=== PATIENT | male | born 1965 | race Caucasian/White ===

== ENCOUNTER → 2020-01-04 14:02 | Outpatient (BNVA) | payer MEDICARE, MEDICAID, SELFPAY | PROVIDERS: Family Provider Nurse Practitioner Family; PCP Nurse Practitioner Family; Visit Provider Nurse Practitioner | DX: R05 Cough (principal) | CPT/HCPCS: 71046 ==

== ENCOUNTER → 2020-03-05 13:51 | Outpatient (BNVA) | payer MEDICARE, MEDICAID, SELFPAY | PROVIDERS: Family Provider Nurse Practitioner Family; PCP Nurse Practitioner Family; Visit Provider Nurse Practitioner Family | DX: Z11.59 Encounter for screening for other viral diseases (principal) | CPT/HCPCS: 87635 ==

== ENCOUNTER → 2022-03-03 08:51 | Outpatient (BNVA) | payer MEDICARE, MEDICAID, SELFPAY | PROVIDERS: Family Provider Nurse Practitioner Family; PCP Nurse Practitioner Family; Visit Provider Nurse Practitioner Family | DX: J02.0 Streptococcal pharyngitis (principal) | CPT/HCPCS: 87880 ==

== ENCOUNTER 2025-04-06 14:43 | Inpatient (IN) | payer MEDICARE, MEDICAID, SELFPAY ==
[2025-04-06] VITALS (11 sets, daily range): BP systolic 121–140; BP diastolic 68–92; PULSE 67–105; RESP 16–18; TEMP 37.4–37.9; O2SAT 96–99; BMI 29.8
--- NOTE | 2025-04-06 15:30 | XR_ITS ---
WS: [id number] Exam: XR forearm RT 2V [id number] Date/Time of Exam: 04/06/2025 4:03 PM Reason For Exam: abscess Oblique and lateral views of the RIGHT forearm are submitted. No obvious fracture or dislocation. There may be some's edema of the volar soft tissues of the forearm. No sign of bone destruction. XR/XR forearm RT 2V [id number] IMPRESSION: 1. Probable soft tissue edema. No bony injury. No radiopaque soft tissue foreig n body.
--- NOTE | 2025-04-06 15:30 | USR_ITS ---
PROCEDURE INFORMATION: Exam: US Right Limited Joint or Other Non-Vascular Extremity Structure Exam date and time: 04/06/2025 4:33 PM Age: 59 years old Clinical indication: Mass or lump; Arm, lower; Right; Additional info: Right forearm abscess TECHNIQUE: Imaging protocol: US right limited joint or other nonvascular extremity structure. Real-time ultrasound with image documentation. Exam focused on the area of clinical interest. Total images: 335 COMPARISON: CR XR forearm RT 2V [id number] 04/06/2025 4:01 PM FINDINGS: Soft tissues: Right forearm subcutaneous soft tissue lobulated hypoechoic complex fluid collection with multiple loculations, the largest of which measure respectively 4.3 x 1.5 x 2.7 cm and 4.1 x 1.1 x 2.8 cm surrounded by generalized dermal and superficial subcutaneous edema favoring abscess, as queried. Other differential considerations may include posttraumatic resolving hematoma-seroma or other indolent cystic structures. No well-circumscribed thick wall appreciated. Generalized upper extremity superficial subcutaneous and dermal soft tissue edema supports the diagnosis of an infectious process. No echogenic foreign bodies. A superficial vascular structure courses through the fluid collection and demonstrates intraluminal echogenicity suggesting a thrombosed superficial vein. US/US soft tissue/extremity 70482 IMPRESSION: 1. Right forearm multiloculated subcutaneous fluid collection with lobulated contour, most consistent with abscess in the appropriate clinical context; post-traumatic seroma or indolent cystic lesion less likely. Percutaneous fluid sampling may be useful to establish a definitive mycobacterial or/and histologic diagnosis this regard. Consider referral to general surgery for incision and drainage. 2. Right upper extremity forearm suspected thrombosed superficial vein coursing through the aforementioned fluid collection.
--- NOTE | 2025-04-06 15:40 | W.ED.SKABFB ---
Documented by User: ADOLFO Singleton 04/06/25 21:26 HPI - Skin/Abscess/Foreign Bdy General: Chief complaint: Skin/Abscess/Foreign Body Stated complaint: R Forarm Hard to touch swollen blisters Time Seen by Provider: 04/06/25 14:53 History of Present Illness: Patient is 59-year-old male presents to the emergency room with increasing redness to an area on 2 places on his right arm. Patient believes that he was bit by a spider a few days ago. He is unsure when. It has worsened with redness, swelling, and draining has not occurred. After I left the room, and his family left the room, he finally digressed and admitted he had IVDU to RN. This was secondary to a missed IVDU for methamphetamines. He states it has worsened over the course the last 1 week. Associated symptoms: Deny chills, fever(s), nausea or vomiting Related Data Home Medications ?Medication ?Instructions ?Recorded ?Confirmed No Known Home Medications 04/06/25 04/06/25 Allergies Allergy/AdvReac Type Severity Reaction Status Date / Time No Known Allergies Allergy Unverified 03/03/22 08:54 Review of Systems General: Reports: 10 or more systems reviewed and unremarkable except in HPI and below Const: Denies: fever(s), chills, body aches or change in appetite Eyes: Denies: change in vision, eye discharge or eye redness ENMT: Reports: throat pain; Denies: hoarseness, ear or mastoid pain, ear discharge, nasal discharge or nasal congestion Card: Denies: chest pain, palpitations, irregular heart rhythm or edema Resp: Denies: dyspnea, productive cough, non-productive cough or wheezing GI: Denies: abdominal pain, nausea, vomiting, diarrhea, constipation or hematochezia : Denies: dysuria, urinary frequency, urinary urgency, urinary hesitancy or hematuria Musc: Denies: joint swelling, joint redness, joint warmth or joint stiffness Skin/Breast: Reports: rash, pruritus, skin tenderness, skin swelling and new lesions Neuro: Reports: weakness in extremities (upper); Denies: headache(s), numbness in extremities or lack of coordination Psych: Denies: suicidal ideation or homicidal ideation Iftikhar/Lymph: Denies: enlarged lymph nodes or tender lymph nodes PFSH ED PFSH: Medical History (Updated 04/06/25 @ 21:21 by ADOLFO Singleton) DDD (degenerative disc disease), lumbar Obesity Tobacco abuse Essential (primary) hypertension Surgical History History of carpal tunnel surgery both Family History Other CAD (coronary artery disease) Cancer Hyperlipidemia Social History Smoking and tobacco/nicotine status: current every day tobacco/nicotine user Second hand smoke exposure: Yes Alcohol intake: never Substance/Drug Use: never Adopted: No Caregiver/support person: No Lives independently: Yes Household members: none Housing: House Marital status: service: No Current occupational status: unemployed Pets and animals: Yes Do you think of yourself as: Straight/Heterosexual Current gender identity: Male Physical Exam Const: COMMON NORMALS: no acute distress, average body habitus and patient oriented x3 HENMT: COMMON NORMALS: normocephalic and atraumatic HEAD & SCALP: normocephalic and atraumatic Lymph: LYMPHATIC: no lymphadenopathy noted Chest: COMMONS NORMALS: normal inspection of the chest and normal palpation of entire chest wall Resp: COMMON NORMALS: normal respiratory effort, No retractions and clear to auscultation bilaterally AUSCULTATION: clear to auscultation bilaterally Cardio: COMMON NORMALS: regular rate and regular rhythm RATE: regular rate RHYTHM: regular rhythm GI: COMMON NORMALS: Normal to inspection, nondistended, normoactive bowel sounds present, Soft to palpation, non-tender and No hepatosplenomegaly present PALPATION: Yes Soft to palpation and Yes No hepatosplenomegaly present : COMMON NORMALS: Yes no CVA tenderness BLADDER/KIDNEY EXAM: Yes no CVA tenderness Back/Pelvis: COMMON NORMALS: no CVA tenderness Extremity: RIGHT UPPER EXTREMITY: Yes upper arm Right upper arm: Yes inspection (Red raised abscesses to mid and distal forearm), Yes palpation (induration without motion) and Yes neurovascular exam (intact, pulses +2), Yes lower arm (Lower arm as described above) and Yes hand & digits (No change in hand and digits) EXTREMITY IMAGE (FRONT):  1. Red, raised abscesses Neuro: COMMON NORMALS: patient oriented x3 Psych: COMMON NORMALS: mental status grossly normal, Normal thought process present and cooperative THOUGHT PROCESS: Normal thought process present Skin: NARRATIVE SKIN EXAM: Patient has a right lateral multiple area of tenderness with mid and distal upper extremity. There is redness, streaking, induration, however it is minimally mobile. At times there is minimal discharge from this area. Course Consultations: Consultation #1: Dr. Hernandez recommended inpatient on medical/surgical floor. Vital Signs: Vital signs: Vital Signs Temperature 100.2 F H 04/06/25 21:44 Pulse Rate 87 04/06/25 21:44 Respiratory Rate 16 04/06/25 21:44 Blood Pressure 136/87 04/06/25 21:44 Pulse Oximetry 96 04/06/25 21:44 Oxygen Delivery Me thod Room Air 04/06/25 21:44 MDM - Skin/Abscess/Foreign Bdy Medicial Decision Making Patient is 59-year-old gentleman with 40 years of IVDU, who presents to the emergency room with 2 masses to his right forearm. On ultrasound, there were septated abscesses. Blood cultures have been drawn. Vancomycin, cefepime and have been started. IV fluid bolus given x 1 L. Magnesium that was severely low at 0.9 has been treated with 4 g, however patient will need additional magnesium. Calcium has been treated with 1 g of calcium carbonate, and 1 g IV of calcium gluconate. Potassium has been given 1 dose of 40 mill equivalents. All of these were discussed with the hospitalist, that understand she will need to continue correcting these issues. All of patient's questions were answered to his satisfaction. He did not have high WBC, however did have neutrophilia, and a red arm consistent with cellulitis. I did not feel comfortable discharging this patient with both his electrolytes, and his septated abscesses. Discussed with hospitalist, that recommends placing the patient on medical surgical floor. Medical Records I reviewed the patient's medical records. Lab Data I reviewed the patient's lab results. 04/06/25 17:11 04/06/25 17:11 Radiology Impressions Forearm X-Ray 04/06/25 15:30 IMPRESSION: 1. Probable soft tissue edema. No bony injury. No radiopaque soft tissue foreign body. Soft Tissue Ultrasound 04/06/25 15:30 IMPRESSION: 1. Right forearm multiloculated subcutaneous fluid collection with lobulated contour, most consistent with abscess in the appropriate clinical context; post-traumatic seroma or indolent cystic lesion less likely. Percutaneous fluid sampling may be useful to establish a definitive mycobacterial or/and histologic diagnosis this regard. Consider referral to general surgery for incision and drainage. 2. Right upper extremity forearm suspected thrombosed superficial vein coursing through the aforementioned fluid collection. Laboratory Results WBC 10.48 10^3/uL (3.29-11.43) 04/06/25 17:11 Corrected WBC Cancelled 04/06/25 15:59 RBC 3.18 10^6/uL (3.85-5.65) L 04/06/25 17:11 Hgb 9.30 g/dL (11.27-16.99) L 04/06/25 17:11 Hct 27.5 % (37-53) L 04/06/25 17:11 MCV 86.5 fl (82-101) 04/06/25 17:11 MCH 29.2 pg (27-33) 04/06/25 17:11 MCHC 33.8 g/dL (30-55) 04/06/25 17:11 RDW 13.2 % (12.1-15.1) 04/06/25 17:11 Plt Count 220 10^3/cmm (157-399) 04/06/25 17:11 MPV 9.0 fL (7.4-10.4) 04/06/25 17:11 Gran % Cancelled 04/06/25 15:59 Neut % (Auto) 81.5 % 04/06/25 17:11 Lymph % (Auto) 11.7 % 04/06/25 17:11 [place] % (Auto) 5.4 % 04/06/25 17:11 Eos % (Auto) 0.5 % 04/06/25 17:11 Baso % (Auto) 0.4 % 04/06/25 17:11 Neut # (Auto) 8.54 10^3/uL (1.8-7.7) H 04/06/25 17:11 Lymph # (Auto) 1.2 10^3/uL (0.8-4.8) 04/06/25 17:11 [place] # (Auto) 0.6 10^3/uL (0.2-0.9) 04/06/25 17:11 Eos # (Auto) 0.1 10^3/uL (0.0-0.8) 04/06/25 17:11 Baso # (Auto) 0.0 10^3/uL (0.0-0.1) 04/06/25 17:11 Absolute Gran (auto) Cancelled 04/06/25 15:59 Nucleated RBC % (auto) 0 % 04/06/25 17:11 Nucleated RBCs # 0.0 /100WBC 04/06/25 17:11 Sodium 140 mmol/L (136-145) 04/06/25 17:11 Potassium 2.0 mmol/L (3.5-5.1) L* 04/06/25 17:11 Chloride 117 mmol/L (98-107) H 04/06/25 17:11 Carbon Dioxide 15 mmol/L (22-29) L 04/06/25 17:11 Anion Gap 10.0 (5-19) 04/06/25 17:11 BUN 8 mg/dL (6-20) 04/06/25 17:11 Creatinine 0.4 mg/dL (0.7-1.2) L 04/06/25 17:11 GFR Calculation 220.9 mL/min (90-130) H 04/06/25 17:11 Glucose 72 mg/dL (65-115) 04/06/25 17:11 Calculated Osmolality 287 mOsm/kg (285-295) 04/06/25 17:11 Lactic Acid 0.8 mmol/L (0.5-2.2) 04/06/25 17:11 Calcium 4.5 mg/dL (8.5-10.5) L* 04/06/25 17:11 Magnesium 0.9 mg/dL (1.7-2.3) L 04/06/25 17:11 Total Bilirubin 0.6 mg/dL (0.15-1.2) 04/06/25 17:11 AST 8 U/L (0-40) 04/06/25 17:11 ALT 10 U/L (0-41) 04/06/25 17:11 Alkaline Phosphatase 55 U/L (40-130) 04/06/25 17:11 C-Reactive Protein 55.2 mg/L (0.0-4.9) H 04/06/25 17:11 Total Protein 3.6 g/dL (6.6-8.7) L 04/06/25 17:11 Albumin 1.8 g/dL (3.5-5.2) L 04/06/25 17:11 Globulin 1.8 g/dL (1.3-4.6) 04/06/25 17:11 Urine Color [place] (Yellow) A 04/06/25 18:55 Urine Appearance Clear (CLEAR) 04/06/25 18:55 Urine pH 5.5 (5-7) 04/06/25 18:55 Ur Specific [place] 1.020 (1.005-1.030) 04/06/25 18:55 Urine Protein Trace (Negative) A 04/06/25 18:55 Urine Glucose (UA) Negative (Normal) 04/06/25 18:55 Urine Ketones Trace (Negative) 04/06/25 18:55 Urine Blood Negative (Negative) 04/06/25 18:55 Urine Nitrate Positive (Negative) A 04/06/25 18:55 Urine Bilirubin 1+ (Negative) H 04/06/25 18:55 Urine Urobilinogen 2.0 mg/dL (Negative) H 04/06/25 18:55 Ur Leukocyte Esterase Negative (Negative) 04/06/25 18:55 Urine RBC 0-2 /hpf (0-2) 04/06/25 18:55 Urine WBC 0-5 /hpf (0-5) 04/06/25 18:55 Ur Squamous Epith Cells 0-5 /hpf (0-5) 04/06/25 18:55 Amorphous Sediment Not Reportable 04/06/25 18:55 Urine Bacteria None seen /hpf (NONE) 04/06/25 18:55 Hyaline Casts 1.21 /lpf 04/06/25 18:55 Urine Opiates Screen Negative ng/mL (Negative) 04/06/25 18:55 Ur Barbiturates Screen Negative ng/mL (Negative) 04/06/25 18:55 Ur Phencyclidine Scrn Negative ng/mL (Negative) 04/06/25 18:55 Ur Amphetamines Screen Positive ng/mL (Negative) H 04/06/25 18:55 U Benzodiazepines Scrn Negative ng/mL (Negative) 04/06/25 18:55 Urine Cocaine Screen Negative ng/mL (Negative) 04/06/25 18:55 U Marijuana (THC) Screen Negative ng/mL (Negative) 04/06/25 18:55 All radiology interpretation(s) finalized by discharge EKG Data EKG 1: Interpretation: Normal sinus rhythm, normal axis, rate 88 Discharge Plan Discharge Patient Disposition: Admitted As Inpatient Admit Provider: Chrissy Oseguera Clinical Impression: Hypomagnesemia, Hypokalemia, Hypocalcemia Abscess of skin or subcutaneous tissue Qualifiers: Site of cutaneous abscess: extremity Site of cutaneous abscess of extremity: upper extremity Laterality: right Qualified Code(s): L02.413 - Cutaneous abscess of right upper limb Cellulitis Qualifiers: Site of cellulitis: extremity Site of cellulitis of extremity: upper extremity Laterality: right Qualified Code(s): L03.113 - Cellulitis of right upper limb Condition: Stable Discharge Diet: Low Salt Discharge Activity: Resume usual activity Coding Level of Care Code ED Shirring Machine Operator Automatic for Chg Fwd Documented by User: Arsenio Malone MD 04/06/25 23:39 HPI - Skin/Abscess/Foreign Bdy General: Chief complaint: Skin/Abscess/Foreign Body Stated complaint: R Forarm Hard to touch swollen blisters Time Seen by Provider: 04/06/25 14:53 Related Data Home Medications ?Medication ?Instructions ?Recorded ?Confirmed No Known Home Medications 04/06/25 04/06/25 Allergies Allergy/AdvReac Type Severity Reaction Status Date / Time No Known Allergies Allergy Unverified 03/03/22 08:54 PFS ED PFSH: Medical History (Updated 04/06/25 @ 21:21 by ADOLFO Singleton) DDD (degenerative disc disease), lumbar Obesity Tobacco abuse Essential (primary) hypertension Surgical History History of carpal tunnel surgery both Family History Other CAD (coronary artery disease) Cancer Hyperlipidemia Social History Smoking and tobacco/nicotine status: current every day tobacco/nicotine user Second hand smoke exposure: Yes Alcohol intake: never Substance/Drug Use: never Adopted: No Caregiver/support person: No Lives independently: Yes Household members: none Housing: House Marital status: service: No Current occupational status: unemployed Pets and animals: Yes Do you think of yourself as: Straight/Heterosexual Current gender identity: Male Physical Exam Extremity: EXTREMITY IMAGE (FRONT):  1. Red, raised abscesses Course Vital Signs: Vital signs: Vital Signs Temperature 100.2 F H 04/06/25 21:44 Pulse Rate 87 04/06/25 21:44 Respiratory Rate 16 04/06/25 21:44 Blood Pressure 136/87 04/06/25 21:44 Pulse Oximetry 96 04/06/25 21:44 Oxygen Delivery Me thod Room Air 04/06/25 21:44 MDM - Skin/Abscess/Foreign Bdy Medicial Decision Making Patient is 59-year-old gentleman with 40 years of IVDU, who presents to the emergency room with 2 masses to his right forearm. On ultrasound, there were septated abscesses. Blood cultures have been drawn. Vancomycin, cefepime and have been started. IV fluid bolus given x 1 L. Magnesium that was severely low at 0.9 has been treated with 4 g, however patient will need additional magnesium. Calcium has been treated with 1 g of calcium carbonate, and 1 g IV of calcium gluconate. Potassium has been given 1 dose of 40 mill equivalents. All of these were discussed with the hospitalist, that understand she will need to continue correcting these issues. All of patient's questions were answered to his satisfaction. He did not have high WBC, however did have neutrophilia, and a red arm consistent with cellulitis. I did not feel comfortable discharging this patient with both his electrolytes, and his septated abscesses. Discussed with hospitalist, that recommends placing the patient on medical surgical floor. I saw patient above midlevel agree with her history physical patient being admitted for hypokalemia along with hypomagnesia did replace here. Lab Data 04/06/25 17:11 04/06/25 17:11 Radiology Impressions Forearm X-Ray 04/06/25 15:30 IMPRESSION: 1. Probable soft tissue edema. No bony injury. No radiopaque soft tissue foreign body. Soft Tissue Ultrasound 04/06/25 15:30 IMPRESSION: 1. Right forearm multiloculated subcutaneous fluid collection with lobulated contour, most consistent with abscess in the appropriate clinical context; post-traumatic seroma or indolent cystic lesion less likely. Percutaneous fluid sampling may be useful to establish a definitive mycobacterial or/and histologic diagnosis this regard. Consider referral to general surgery for incision and drainage. 2. Right upper extremity forearm suspected thrombosed superficial vein coursing through the aforementioned fluid collection. Laboratory Results WBC 10.48 10^3/uL (3.29-11.43) 04/06/25 17:11 Corrected WBC Cancelled 04/06/25 15:59 RBC 3.18 10^6/uL (3.85-5.65) L 04/06/25 17:11 Hgb 9.30 g/dL (11.27-16.99) L 04/06/25 17:11 Hct 27.5 % (37-53) L 04/06/25 17:11 MCV 86.5 fl (82-101) 04/06/25 17:11 MCH 29.2 pg (27-33) 04/06/25 17:11 MCHC 33.8 g/dL (30-55) 04/06/25 17:11 RDW 13.2 % (12.1-15.1) 04/06/25 17:11 Plt Count 220 10^3/cmm (157-399) 04/06/25 17:11 MPV 9.0 fL (7.4-10.4) 04/06/25 17:11 Gran % Cancelled 04/06/25 15:59 Neut % (Auto) 81.5 % 04/06/25 17:11 Lymph % (Auto) 11.7 % 04/06/25 17:11 [place] % (Auto) 5.4 % 04/06/25 17:11 Eos % (Auto) 0.5 % 04/06/25 17:11 Baso % (Auto) 0.4 % 04/06/25 17:11 Neut # (Auto) 8.54 10^3/uL (1.8-7.7) H 04/06/25 17:11 Lymph # (Auto) 1.2 10^3/uL (0.8-4.8) 04/06/25 17:11 [place] # (Auto) 0.6 10^3/uL (0.2-0.9) 04/06/25 17:11 Eos # (Auto) 0.1 10^3/uL (0.0-0.8) 04/06/25 17:11 Baso # (Auto) 0.0 10^3/uL (0.0-0.1) 04/06/25 17:11 Absolute Gran (auto) Cancelled 04/06/25 15:59 Nucleated RBC % (auto) 0 % 04/06/25 17:11 Nucleated RBCs # 0.0 /100WBC 04/06/25 17:11 Sodium 140 mmol/L (136-145) 04/06/25 17:11 Potassium 2.0 mmol/L (3.5-5.1) L* 04/06/25 17:11 Chloride 117 mmol/L (98-107) H 04/06/25 17:11 Carbon Dioxide 15 mmol/L (22-29) L 04/06/25 17:11 Anion Gap 10.0 (5-19) 04/06/25 17:11 BUN 8 mg/dL (6-20) 04/06/25 17:11 Creatinine 0.4 mg/dL (0.7-1.2) L 04/06/25 17:11 GFR Calculation 220.9 mL/min (90-130) H 04/06/25 17:11 Glucose 72 mg/dL (65-115) 04/06/25 17:11 Calculated Osmolality 287 mOsm/kg (285-295) 04/06/25 17:11 Lactic Acid 0.8 mmol/L (0.5-2.2) 04/06/25 17:11 Calcium 4.5 mg/dL (8.5-10.5) L* 04/06/25 17:11 Magnesium 0.9 mg/dL (1.7-2.3) L 04/06/25 17:11 Total Bilirubin 0.6 mg/dL (0.15-1.2) 04/06/25 17:11 AST 8 U/L (0-40) 04/06/25 17:11 ALT 10 U/L (0-41) 04/06/25 17:11 Alkaline Phosphatase 55 U/L (40-130) 04/06/25 17:11 C-Reactive Protein 55.2 mg/L (0.0-4.9) H 04/06/25 17:11 Total Protein 3.6 g/dL (6.6-8.7) L 04/06/25 17:11 Albumin 1.8 g/dL (3.5-5.2) L 04/06/25 17:11 Globulin 1.8 g/dL (1.3-4.6) 04/06/25 17:11 Urine Color [place] (Yellow) A 04/06/25 18:55 Urine Appearance Clear (CLEAR) 04/06/25 18:55 Urine pH 5.5 (5-7) 04/06/25 18:55 Ur Specific [place] 1.020 (1.005-1.030) 04/06/25 18:55 Urine Protein Trace (Negative) A 04/06/25 18:55 Urine Glucose (UA) Negative (Normal) 04/06/25 18:55 Urine Ketones Trace (Negative) 04/06/25 18:55 Urine Blood Negative (Negative) 04/06/25 18:55 Urine Nitrate Positive (Negative) A 04/06/25 18:55 Urine Bilirubin 1+ (Negative) H 04/06/25 18:55 Urine Urobilinogen 2.0 mg/dL (Negative) H 04/06/25 18:55 Ur Leukocyte Esterase Negative (Negative) 04/06/25 18:55 Urine RBC 0-2 /hpf (0-2) 04/06/25 18:55 Urine WBC 0-5 /hpf (0-5) 04/06/25 18:55 Ur Squamous Epith Cells 0-5 /hpf (0-5) 04/06/25 18:55 Amorphous Sediment Not Reportable 04/06/25 18:55 Urine Bacteria None seen /hpf (NONE) 04/06/25 18:55 Hyaline Casts 1.21 /lpf 04/06/25 18:55 Urine Opiates Screen Negative ng/mL (Negative) 04/06/25 18:55 Ur Barbiturates Screen Negative ng/mL (Negative) 04/06/25 18:55 Ur Phencyclidine Scrn Negative ng/mL (Negative) 04/06/25 18:55 Ur Amphetamines Screen Positive ng/mL (Negative) H 04/06/25 18:55 U Benzodiazepines Scrn Negative ng/mL (Negative) 04/06/25 18:55 Urine Cocaine Screen Negative ng/mL (Negative) 04/06/25 18:55 U Marijuana (THC) Screen Negative ng/mL (Negative) 04/06/25 18:55 Discharge Plan Discharge Patient Disposition: Admitted As Inpatient Admit Provider: Chrissy Oseguera Clinical Impression: Hypomagnesemia, Hypokalemia, Hypocalcemia Abscess of skin or subcutaneous tissue Qualifiers: Site of cutaneous abscess: extremity Site of cutaneous abscess of extremity: upper extremity Laterality: right Qualified Code(s): L02.413 - Cutaneous abscess of right upper limb Cellulitis Qualifiers: Site of cellulitis: extremity Site of cellulitis of extremity: upper extremity Laterality: right Qualified Code(s): L03.113 - Cellulitis of right upper limb Condition: Stable Discharge Diet: Low Salt Discharge Activity: Resume usual activity Coding Level of Care Code ED Shirring Machine Operator Automatic for Fredrick Pugh
--- NOTE | 2025-04-06 16:17 | ECG_ITS ---
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
--- OUTSIDE RECORDS SUMMARY | 2025-04-06 16:27 | XMS_ITS | Clinical Summary ---
Author Organization [facility] Address [address] [place] [address] Care Team Providers Care Account Manager Education Name Role Phone Unavailable Primary Care Provider Unavailabl e Allergies No known active allergies Medications Aspirin, Buffered 81 mg Oral TabIndications:Th oracic or lumbosacral neuritis or radiculitis, unspecified,LBP (low back pain),Scoliosis Take by mouth. Active Active Problems Problem Noted Date Diagnosed Date DDD (degenerative disc disease), lumbar 11/13/19 11 Overview (11/12/2010): L3-4, 4-5, 5-1 Tobacco use disorder 11/12/2010 Morbid obesity 11/12/2010 Overview (11/12/2010): 330 lbs; BMI = 44.76 Scoliosis 10/22/2010 LBP (low back pain) 10/22/2010 Resolved Problems Problem Noted Date Diagnosed Date Resolved Date Thoracic or lumbosacral neur itis or radiculitis, unspecified 10/22/2010 11/12/2010 Overview (10/22/2010): RLE Social History Tobacco Use Types Packs/Day Years Used Date Smoking Tobacco: Every Day Smokeless Tobacco: Never Alcohol Use Standard Drinks/Week Comments No 0 (1 standard drink = 0.6 oz pur e alcohol) Sex and Gender Information Value Date Recorded Sex Assigned at Not on file 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 Gender Identity Not on file Sexual Orientation Not on file Last Filed Vital Signs Vital Sign Reading Time Taken Comments Blood Pressure 132/80 11/12/2010 9:05 AM CDT Pulse 90 11/12/2010 9:05 AM CDT Temperature - - Respiratory Rate 16 10/22/2010 8:07 AM CDT Oxygen Saturation - - Inhaled Oxygen Concentration - - Weight 149.7 kg (330 lb) 11/12/2010 9:05 AM CDT Height 182.9 cm (6') 11/12/2010 9:05 AM CDT Body Mass Index 44.76 11/12/2010 9:05 AM CDT Plan of Treatment Health Maintenance Due Date Last Done Comments DTAP/TDAP/TD VACCINES (1 - Tdap) 1985 HEPATITIS B VACCINES (1 of 3 - 19+ 3-dose series) 07/1984 COLORECTAL SCREENING 2011 Colorectal Cancer Screening 2011 FIT-DNA Q 3 years 2011 FIT/FOBT Q 1 year 2011 Flex Sig/CT Colonography Q 5 years 2011 ZOSTER VACCINE (1 of 2) 2016 INFLUENZA VACCINE (#1) 2025
--- OUTSIDE RECORDS SUMMARY | 2025-04-06 16:27 | XMS_ITS | Clinical Summary ---
Author Organization [employer] Address [address] [place]: Epic Prelude ADT [place] [address] Care Team Providers Care Production Dispatcher Name Role Phone Unavailable Primary Care Provider Unavailabl e Allergies No known active allergies Active Problems Problem Noted Date Diagnosed Date DDD (degenerative disc disease), lumbar 11/13/19 11 Overview (11/08/2020): L3-4, 4-5, 5-1 Tobacco use disorder 11/12/2010 Morbid obesity 11/12/2010 Overview (11/08/2020): 330 lbs; BMI = 44.76 Scoliosis 10/22/2010 LBP (low back pain) 10/22/2010 Resolved Problems Problem Noted Date Diagnosed Date Resolved Date Thoracic or lumbosacral neur itis or radiculitis, unspecified 10/22/2010 11/12/2010 Overview (11/07/2020): RLE Social History Tobacco Use Types Packs/Day Years Used Date Smoking Tobacco: Every Day Smokeless Tobacco: Never Alcohol Use Standard Drinks/Week Comments No 0 (1 standard drink = 0.6 oz pur e alcohol) Sex and Gender Information Value Date Recorded Sex Assigned at Not on file 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
[2025-04-06 17:20] LABS: Hematocrit 27.5 % (37-53); Hemoglobin 9.30 g/dL (11.27-16.99); Mean Corpuscular HGB Conc 33.8 g/dL (30-55); Mean Corpuscular Hemoglobin 29.2 pg (27-33); Mean Corpuscular Volume 86.5 fl (82-101); Nucleated Red Blood Cells % 0 %; Platelet Count 220 10^3/cmm (157-399); Red Blood Count 3.18 10^6/uL (3.85-5.65); White Blood Count 10.48 10^3/uL (3.29-11.43)
[2025-04-06 17:47] LABS: Alanine Aminotransferase 10 U/L (0-41); Albumin Level 1.8 g/dL (3.5-5.2); Alkaline Phosphatase 55 U/L (40-130); Anion Gap 10.0 (5-19); Aspartate Amino Transferase 8 U/L (0-40); Blood Urea Nitrogen 8 mg/dL (6-20); Carbon Dioxide 15 mmol/L (22-29); Chloride 117 mmol/L (98-107); Creatinine Clr Calc Pharmacy 251.3824; Globulin 1.8 g/dL (1.3-4.6); Glucose 72 mg/dL (65-115); Osmolality Calculated 287 mOsm/kg (285-295); Sodium 140 mmol/L (136-145); Total Protein 3.6 g/dL (6.6-8.7)
[2025-04-06 17:48] LABS: Lactic Sepsis W/Reflex 0.8 mmol/L (0.5-2.2)
[2025-04-06 18:19] LABS: Calcium 4.5 mg/dL (8.5-10.5); Potassium 2.0 mmol/L (3.5-5.1)
[2025-04-06 19:09] LABS: Magnesium 0.9 mg/dL (1.7-2.3)
[2025-04-06 19:20] LABS: Glucose Urine UA Negative (Normal); Nitrate Urine Positive (Negative); Specific Gravity, Urine 1.020 (1.005-1.030)
[2025-04-06 19:26] LABS: Add Urine Microscopic? YES; PCP Screen Urine Negative (Negative)
[2025-04-06] MEDS: magnesium sulfate premix 4 GM/100 ML PREMIX IV (19:33)
[2025-04-06] MEDS: cefepime 1,000 mg SDV 1000 MG IVP (20:04)
[2025-04-06] MEDS: calcium gluconate 0.1 gm/mL 10% SDV 10mL 1 GM IVP (20:04)
--- NOTE | 2025-04-06 22:09 | P.CONIM_ITS ---
Providers/Reason For Consult 2 Consulting Physician/Specialty*: Dr. Will general surgery Reason for Consult*: Right forearm I&D Attending Physician: Chrissy Oseguera MD Primary Care Provider: SHAWNEE Benjamin History of Present Illness History of Present Illness Jorge Levi is a 59 year old male history of IVDU with a right volar forearm abscess. Being treated with antibiotics. Medications/Allergies Home Medications ?Medication ?Instructions ?Recorded ?Confirmed ?Last Taken ?Type No Known Home Medications 04/06/2503/14 Unknown History Allergies Allergy/AdvReac Type Severity Reaction Status Date / Time No Known Allergies Allergy Unverified 03/03/22 08:54 PFSH Acute 2 PFSH: Medical History (Updated 04/07/25 @ 01:10 by Chrissy Oseguera MD) DDD (degenerative disc disease), lumbar Obesity Tobacco abuse Essential (primary) hypertension Surgical History History of carpal tunnel surgery both Family History Other CAD (coronary artery disease) Cancer Hyperlipidemia Social History Smoking and tobacco/nicotine status: current every day tobacco/nicotine user Second hand smoke exposure: Yes Alcohol intake: never Substance/Drug Use: never Adopted: No Caregiver/support person: No Lives independently: Yes Household members: none Housing: House Marital status: service: No Current occupational status: unemployed Pets and animals: Yes Do you think of yourself as: Straight/Heterosexual Current gender identity: Male Vitals/I&O/Wt Last Vital Signs Temp 99.4 F 04/06/25 14:47 Pulse 75 04/06/25 21:26 Resp 18 04/06/25 14:47 BP 122/79 04/06/25 21:26 Pulse Ox 98 04/06/25 21:26 O2 Del Method Room Air 04/06/25 21:33 04/06/25 04/06/25 04/06/25 06:59 14:59 22:59 Intake Total 1400 / 1400 Balance 1400 / 1400 Weight last 48 hrs Weight 220 lb Weight 230 lb Physical Exam 2 Narrative: Chest: Unlabored breathing room air. No lymphadenopathy. Heart: Regular rate and rhythm. Abdomen: Soft, nontender, nondistended. No masses or lymphadenopathy. Right forearm abscess on volar aspect Data 04/06/25 17:11 04/06/25 17:11 Micro: Microbiology 04/06/25 17:11 Blood Culture - Preliminary Blood SPECIMEN COLLECTED 04/06/25 15:59 Blood Culture - Preliminary Blood SPECIMEN COLLECTED A&P Assessment and plan 1. Abscess of skin or subcutaneous tissue: Plan: 59-year-old male with a right forearm abscess. Discussed risk and benefits and patient agreed to proceed with right forearm abscess incision and drainage. Had extensive discussion with the patient. Answered all of his questions. The risk include injury to forearm arteries veins and nerves. He will need to take care of the wound for weeks. Patient agrees to proceed. Discussed alternatives. Patient still decides to proceed with surgery. PDMP PDMP Reviewed: Not Reviewed Coding Level of Care Code 91602 Diagnoses Abscess of skin or subcutaneous tissue L02.91
--- NOTE | 2025-04-06 22:14 | P.HP_ITS ---
Providers/Chief Complaint 2 Admitting Physician: Chrissy Oseguera MD--- patient seen and evaluated before 12 midnight Primary Care Provider: SHAWNEE Benjamin Chief Complaint: R Forarm Hard to touch swollen blisters History of Present Illness Jorge Levi is a 59 year old male with medical history significant for methamphetamine abuse, history of paranoid schizophrenia not on any medicine and does not follow-up with psychiatrist and last time seen by a psychiatrist was 13 years ago because patient said he does not need it. Patient presented today because of multiple painful skin abscesses to the right upper extremity from the injection sites of methamphetamine to the skin and subcutaneous tissues. Patient was blood culture showed in the emergency room and received 1 g of cefepime and IV. I was called to evaluate patient for admission. Patient needed to come into the hospital for deep-seated incision and drainage of these abscesses on the right upper extremities and also have IV antibiotics. I have added vancomycin for pharmacy to dose and treat. And also continued with cefepime 2 g IV twice daily. Review of Systems 2 Narrative: System review upon 10 organ review were significant for skin and subcutaneous disorder with abscesses otherwise unremarkable Medications/Allergies Home Medications ?Medication ?Instructions ?Recorded ?Confirmed ?Last Taken ?Type No Known Home Medications 04/06/2503/14 Unknown History Allergies Allergy/AdvReac Type Severity Reaction Status Date / Time No Known Allergies Allergy Unverified 03/03/22 08:54 PFSH Acute 2 PFSH: Medical History DDD (degenerative disc disease), lumbar Obesity Tobacco abuse Essential (primary) hypertension Surgical History History of carpal tunnel surgery both Family History Other CAD (coronary artery disease) Cancer Hyperlipidemia Social History Smoking and tobacco/nicotine status: current every day tobacco/nicotine user Second hand smoke exposure: Yes Alcohol intake: never Substance/Drug Use: never Adopted: No Caregiver/support person: No Lives independently: Yes Household members: none Housing: House Marital status: service: No Current occupational status: unemployed Pets and animals: Yes Do you think of yourself as: Straight/Heterosexual Current gender identity: Male Vitals/I&O/Wt Last Vital Signs Temp 99.4 F 04/06/25 14:47 Pulse 75 04/06/25 21:26 Resp 18 04/06/25 14:47 BP 122/79 04/06/25 21:26 Pulse Ox 98 04/06/25 21:26 O2 Del Method Room Air 04/06/25 21:33 04/06/25 04/06/25 04/06/25 06:59 14:59 22:59 Intake Total 1400 / 1400 Balance 1400 / 1400 Weight last 48 hrs Weight 99.79 kg Weight 104.326 kg Physical Exam 2 Narrative: Patient is not ill appearing. Patient added that he is with paranoid schizophrenia and is not on any medication and had not seen his psychiatrist in 13 years HEENT normocephalic/atraumatic neck neck is supple cardiovascular heart rate is regular lungs are pretty much clear abdomen soft nontender nondistended unremarkable extremities are intact no edema has good pulses, however right upper extremities where significant for multiple abscesses of the skin and 1 on the wrist. Neurology has no focality lab studies lab studies reviewed and noted. Data 04/06/25 17:11 04/06/25 17:11 Micro: Microbiology 04/06/25 17:11 Blood Culture - Preliminary Blood SPECIMEN COLLECTED 04/06/25 15:59 Blood Culture - Preliminary Blood SPECIMEN COLLECTED A&P Assessment and plan 1. Hypocalcemia: 2. Hypokalemia: 3. Hypomagnesemia: 4. Cellulitis: 5. Abscess of skin or subcutaneous tissue: 6. Tobacco abuse: 7. Metabolic acidosis: Plan: #1 Right upper extremity skin abscesses and cellulitis - Admit to general medical floor with telemetry - Must cover gram-positive anaerobic's and gram-negative's with appropriate antibiotics - Patient is on 2 g cefepime and twice daily and vancomycin for pharmacy to dose and treat - Must keep Vanco trough level between 15 and 20 - Pain management with Toradol, Tylenol, morphine - Follow cultures of the abscess and blood and optimize accordingly - Ultrasound of the right upper extremity done showing skin abscesses - Definitive CT of the right upper extremities is necessary for an in-depth study - Surgical consult with Dr. Will done and case fully discussed #2 Multiple electrolyte imbalances: - Hypokalemia of 2 of potassium *60 mill he equivalents of potassium given in the emergency room and only orally Will give an IV of 40K rider for over 4 hours repeat and follow lab studies and optimize accordingly *Hypomagnesemia - 4 g magnesium phosphate IV given for a.m. magnesium of 0.9 in the emergency room *Hypocalcemia - 1 g of IV calcium gluconate given in the emergency room will continue for the replacement of calcium of4 #3 Metabolic acidosis - Will treat the underlying infection - Continue gentle hydration #4 GI and DVT prophylaxis in place PDMP PDMP Reviewed: Last Reviewed 04/07/25 01:13 by Chrissy Oseguera MD Attestations 2 Medical Necessity Statement*: Patient with multiple skin abscesses from IVDA of methamphetamine associated with fever. Patient meets inpatient criteria and requires at least 2 midnights for care Coding Level of Care Code 23918 Diagnoses Hypocalcemia E83.51 Hypokalemia E87.6 Hypomagnesemia E83.42 Cellulitis L03.90 Abscess of skin or subcutaneous tissue L02.91 Tobacco abuse Z72.0 Metabolic acidosis E87.20 Time Spent (min) 60
[2025-04-06] MEDS: cefepime 2,000 mg SDV 2000 MG IVP (23:11)
[2025-04-07] VITALS (10 sets, daily range): BP systolic 97–136; BP diastolic 65–83; PULSE 51–84; RESP 15–18; TEMP 36.8–37.8; O2SAT 92–97; BMI 29.8
--- NOTE | 2025-04-07 01:31 | CTR_ITS ---
PROCEDURE INFORMATION: Exam: CT Right Upper Extremity With Contrast Exam date and time: 04/07/2025 2:50 AM Age: 59 years old Clinical indication: Condition or disease; Abscess; Other: Wrist and forearm; Additional info: Large abscesses in the forearm of the right upper extremity, please obtain the CT with contrast of the right arm and of TECHNIQUE: Imaging protocol: Computed tomography of the right upper extremity with contrast. Radiation optimization: All CT scans at this facility use at least one of these dose optimization techniques: automated exposure control; mA and/or kV adjustment per patient size (includes targeted exams where dose is matched to clinical indication); or iterative reconstruction. Contrast material: OMNI 350; Contrast volume: 100 ml; Contrast route: INTRAVENOUS (IV); COMPARISON: CR XR forearm RT 2V [id number] 04/06/2025 4:01 PM RADIATION DOSE METRICS: Total DLP (mGy-cm): 311.24 FINDINGS: Bones/joints: No evidence of acute fracture or dislocation. No evidence of osseous erosions to suggest acute osteomyelitis at this time. Vasculature: A traversing superficial vein demonstrates perivascular inflammation and thrombosis through the center of the abscess (series 7 images 78-112). Imaged brachial, radial, and ulnar arteries are patent. Soft tissues: Multiloculated rim enhancing abscess along the radial aspect of the mid forearm measuring 4.1 x 3.1 x 7.4 cm in maximum axial craniocaudal plane (series 7, image 88, series 11, image 10). The abscess abuts the flexor and extensor compartments, likely with fascial and superficial muscular involvement. No evidence of a gas containing infection. Corresponding cellulitis of the imaged forearm. Questioned phlegmonous changes in the lateral aspect of the flexor compartment of the mid forearm (series 7, images 73-115). CT/CT forearm RT w con [id number] IMPRESSION: 1. Multiloculated abscess along the radial aspect of the mid forearm measuring up to 4.1 x 3.1 x 7.4 cm. Likely involvement of the superficial muscular fascial compartment. Superficial intramuscular extension is not excluded. 2. Questioned phlegmonous changes in the lateral aspect of the flexor compartment of the mid forearm. 3. Thrombophlebitis of the superficial vessel traversing the abscess. Patent imaged brachial, radial, and ulnar arteries.
[2025-04-07] MEDS: iohexol 350 mg/mL 500 mL Btl (per mL) IV (03:30)
--- NOTE | 2025-04-07 04:18 | PC.NURSE ---
Lab visited patient to draw blood, he refused draw and state if they want blood they can take it out of my ankle, thats the only way they are getting it . i called Dr. Astorga and asked her she stated she will not give orders for that, she wants the draws to be from the arms.
[2025-04-07] MEDS: cefepime 2,000 mg SDV 2000 MG IVP ×3 (06:20→23:03)
--- NOTE | 2025-04-07 07:11 | PHA.VACGOAL ---
Vancomycin Goal - Goal Vancomycin Goal:: 10-15 mg/L Vancomycin Indication:: SSTI - Therapy Current therapy:: Cefepime Day of therpy:: Day []of [] . Actual body weight (kg): 220 lb - Data Labs: WBC 10.48 10^3/uL (3.29-11.43) 04/06/25 17:11 Corrected WBC Cancelled 04/06/25 15:59 RBC 3.18 10^6/uL (3.85-5.65) L 04/06/25 17:11 Hgb 9.30 g/dL (11.27-16.99) L 04/06/25 17:11 Hct 27.5 % (37-53) L 04/06/25 17:11 MCV 86.5 fl (82-101) 04/06/25 17:11 MCH 29.2 pg (27-33) 04/06/25 17:11 MCHC 33.8 g/dL (30-55) 04/06/25 17:11 RDW 13.2 % (12.1-15.1) 04/06/25 17:11 Sodium Cancelled 04/07/25 04:04 Potassium Cancelled 04/07/25 04:04 Chloride Cancelled 04/07/25 04:04 Carbon Dioxide Cancelled 04/07/25 04:04 Anion Gap Cancelled 04/07/25 04:04 BUN Cancelled 04/07/25 04:04 Creatinine Cancelled 04/07/25 04:04 GFR Calculation Cancelled 04/07/25 04:04 Last dialysis session:: N/A Treatment plan:: new consult Regimen:: INITIAL LOADING DOSE OF 1500 MG GIVEN IN ER MAINTENANCE DOSE OF 1250 MG Q8H Follow up:: WILL CONTINUE TO MONITOR AND FOLLOW UP DAILY
--- NOTE | 2025-04-07 08:41 | P.PN_ITS ---
Subjective 2 Subjective: Right forearm abscess Critically low potassium Patient refusing potassium replacements Vitals/I&O/Wt Last Vital Signs Temp 98.3 F 04/07/25 07:48 Pulse 70 04/07/25 07:48 Resp 18 04/07/25 07:48 BP 102/66 04/07/25 07:48 Pulse Ox 93 04/07/25 07:48 O2 Del Method Room Air 04/07/25 03:15 04/06/25 04/07/25 04/07/25 22:59 06:59 14:59 Intake Total 1400 / 1400 726.667 / 2126.667 Balance 1400 / 1400 726.667 / 2126.667 Weight last 48 hrs Weight 220 lb Weight 220 lb Weight 230 lb Physical Exam 2 Narrative: Chest: Unlabored breathing room air. No lymphadenopathy. Heart: Regular rate and rhythm. Abdomen: Soft, nontender, nondistended. No masses or lymphadenopathy. Right forearm abscess Data 04/06/25 17:11 04/06/25 17:11 Micro: Microbiology 04/06/25 17:11 Blood Culture - Preliminary Blood SPECIMEN COLLECTED 04/06/25 15:59 Blood Culture - Preliminary Blood SPECIMEN COLLECTED A&P Assessment and plan 1. Abscess of skin or subcutaneous tissue: Plan: 59-year-old male history of IVDU with a right forearm abscess. Critical potassium. Initially refusing potassium replacements. Now agreeable to pursue potassium replenishment. Will plan for OR on 04/09/2025 to ensure appropriate potassium levels prior to proceeding to the OR. N.p.o. after midnight on 04/09/2025. Discussed with patient who is in agreement. Discussed with hospitalist. PDMP PDMP Reviewed: Not Reviewed Attestations 2 Medical Necessity Statement*: N/A Coding Level of Care Code 99444 Diagnoses Abscess of skin or subcutaneous tissue L02.91
--- NOTE | 2025-04-07 08:41 | PM.MISC ---
Miscellaneous Note Note: Tentative plan for I&D in OR today. NPO.
[2025-04-07] MEDS: morphine 4 mg/mL SDV 1 mL IVP ×2 (12:43→17:27)
[2025-04-07] MEDS: sodium chlor 0.45% +KCl 20 mEq 20 MEQ/1,000 ML BAG 150 MEQ IV (13:50)
--- NOTE | 2025-04-07 15:51 | P.PN_ITS ---
Subjective 2 Subjective: 59-year-old male was refusing blood draws. He states he did take his IV fluids as well as the oral medications were given to him. He is anxious to go home. He asked if he can be knocked out for his blood draw and also if the blood draw can be done out of his leg because it is veins and the arms are poor. Vitals/I&O/Wt Last Vital Signs Temp 99.3 F 04/07/25 11:47 Pulse 73 04/07/25 14:00 Resp 18 04/07/25 12:43 BP 136/83 04/07/25 11:47 Pulse Ox 92 04/07/25 11:47 O2 Del Method Room Air 04/07/25 03:15 04/07/25 04/07/25 04/07/25 06:59 14:59 22:59 Intake Total 726.667 / 2126.667 250 / 250 Balance 726.667 / 2126.667 250 / 250 Weight last 48 hrs Weight 99.79 kg Weight 99.79 kg Weight 104.326 kg Physical Exam 2 Narrative: General well-developed male smells badly of body odor CV regular rate and rhythm no loud murmur Lungs clear to auscultation Right arm erythematous tender edematous and fluctuant consistent with abscess Right leg with palpable and visible veins for blood draw Data 04/06/25 17:11 04/06/25 17:11 Micro: Microbiology 04/06/25 17:11 Blood Culture - Preliminary Blood SPECIMEN COLLECTED 04/06/25 15:59 Blood Culture - Preliminary Blood SPECIMEN COLLECTED A&P Assessment and plan 1. Abscess of skin or subcutaneous tissue: In need of I&D. Surgery held up due to severe electrolyte abnormalities and patient refused blood draw earlier in the day. I discussed with him this afternoon and he is willing to allow blood draw on his leg 2. Hypocalcemia: Received 1 amp of calcium gluconate which unlikely to be enough. Patient's albumin is low however so we will check ionized calcium now 3. Hypokalemia: Patient has had 40 mEq every 4 hours x 2 today +40 mEq in the emergency department and 20 mEq/L and his IV fluids at 150 cc an hour. Will check potassium now in preparation for surgery in the morning along with magnesium and phosphorus 4. Hypomagnesemia: As above 5. Cellulitis: Continue vancomycin. Will draw vancomycin trough now patient declined blood draw earlier in the morning 6. Tobacco abuse: Replace with nicotine patch 7. Metabolic acidosis: Hyperchloremic. He has been hydrated recheck lab PDMP PDMP Reviewed: Not Reviewed Attestations 2 Medical Necessity Statement*: Patient remains in hospital for additional 1-2 midnights for surgery electrolyte replacements and IV antibiotics prior to discharge on oral antibiotics Coding Level of Care Code 33139 Diagnoses Abscess of skin or subcutaneous tissue L02.413 Laterality: right Site of cutaneous abscess: extremity Site of cutaneous abscess of extremity: upper extremity Hypocalcemia E83.51 Hypokalemia E87.6 Hypomagnesemia E83.42 Cellulitis L03.113 Laterality: right Site of cellulitis: extremity Site of cellulitis of extremity: upper extremity Tobacco abuse Z72.0 Metabolic acidosis E87.20 Time Spent (min) 35
[2025-04-07 16:28] LABS: Hematocrit 37.3 % (37-53); Hemoglobin 12.90 g/dL (11.27-16.99); Mean Corpuscular HGB Conc 34.6 g/dL (30-55); Mean Corpuscular Hemoglobin 29.0 pg (27-33); Mean Corpuscular Volume 83.8 fl (82-101); Nucleated Red Blood Cells % 0 %; Platelet Count 288 10^3/cmm (157-399); Red Blood Count 4.45 10^6/uL (3.85-5.65); White Blood Count 11.43 10^3/uL (3.29-11.43)
[2025-04-07 16:59] LABS: Alanine Aminotransferase 21 U/L (0-41); Albumin Level 3.2 g/dL (3.5-5.2); Alkaline Phosphatase 127 U/L (40-130); Aspartate Amino Transferase 22 U/L (0-40); Blood Urea Nitrogen 14 mg/dL (6-20); Calcium 8.2 mg/dL (8.5-10.5); Carbon Dioxide 19 mmol/L (22-29); Chloride 100 mmol/L (98-107); Creatinine Clr Calc Pharmacy 123.1082; Globulin 2.7 g/dL (1.3-4.6); Glucose 90 mg/dL (65-115); Magnesium 2.3 mg/dL (1.7-2.3); Osmolality Calculated 274 mOsm/kg (285-295); Sodium 132 mmol/L (136-145); Total Protein 5.9 g/dL (6.6-8.7)
[2025-04-07 17:01] LABS: Anion Gap 18.2 (5-19); Potassium 5.2 mmol/L (3.5-5.1)
[2025-04-07] MEDS: calcium gluconate 0.9% NaCL 1 GM/50 ML PREMIX IV ×2 (17:27→18:01)
--- NOTE | 2025-04-07 22:10 | USCV_ITS ---
Jorge Levi Age: 59 Gender: M : 1965 Exam Date: 04/07/2025 09:25 Ordering Phys: Chrissy Oseguera MD Technologist: Exam Location: [facility] [place] Indication: ? veg BP: 130 / 70 HR: 70 Rhythm: Sinus Technical Quality: Adequate MEASUREMENTS (Male / Female) Normal Values 2D ECHO LV Diastolic Diameter PLAX 5.2 cm 4.2 - 5.9 / 3.9 - 5.3 cm IVS Diastolic Thickness 1.4 cm 0.6 - 1.0 / 0.6 - 0.9 cm IVS Systolic Thickness 1.9 cm LVPW Diastolic Thickness 1.6 cm 0.6 - 1.0 / 0.6 - 0.9 cm LVPW Systolic Thickness 2.1 cm LVOT Diameter 2.7 cm LV Ejection Fraction 2D Teich 63.0 % LV Ejection Fraction MOD 4C 72.5 % LV Ejection Fraction MOD 2C 68.9 % LV Ejection Fraction 2C AL 69.1 % LA Diameter 3.8 cm RA Systolic Volume 4C AL 46.8 ml RA Systolic Volume 4C MOD 45.8 ml Aorta at Sinotubular Diameter 3.6 cm M-MODE LA Ao Ratio MM 1.2 AV Cusp Separation MM 2.6 cm DOPPLER AV Peak Velocity 200.7 cm/s LVOT Peak Velocity 106.0 cm/s AV Area Cont Eq vti 3.9 cm squared AV Area Cont Eq pk 3.1 cm squared MV Peak Velocity 109.0 cm/s MV Area PHT 2.5 cm squared TV Peak Velocity 177.5 cm/s TR Peak Velocity 179.0 cm/s TR Peak Gradient 12.8 mmHg PV Peak Velocity 101.0 cm/s FINDINGS Left Ventricle Normal left ventricular size and systolic function, EF 60-65%. No regional wall motion abnormalities. Right Ventricle Normal right ventricular size and systolic function. Right Atrium Normal right atrial size. Left Atrium Normal left atrial size. Mitral Valve Structurally normal mitral valve. Trace mitral regurgitation Aortic Valve Thickened aortic valve. No aortic valve stenosis. Tricuspid Valve Mild tricuspid valve regurgitation. Pulmonary artery systolic pressure is normal Pulmonic Valve Not well visualized Pericardium Normal Aorta Ascending aorta is mildly dilated with diameter of 3.62cm IVC Not well visualized CONCLUSIONS LV systolic function is normal with EF of 60-65% Trace mitral regurgitation Mild tricuspid regurgitation Ascending aorta is mildly dilated with diameter of 3.62cm Julián Garcia MD (Electronically Signed) Final Date: 08 April 2025 14:10 S
[2025-04-08] VITALS (17 sets, daily range): BP systolic 104–149; BP diastolic 55–88; PULSE 51–80; RESP 17–20; TEMP 36.1–37.3; O2SAT 94–99
[2025-04-08] MEDS: cefepime 2,000 mg SDV 2000 MG IVP ×2 (05:25→14:12)
--- NOTE | 2025-04-08 07:19 | PC.NURSE ---
at 0600 lab draw, not enough blood was obtained for the tests and patient said he refuses to give anymore blood. the blood is needed in order to take patient to surgery. 07 Dr. Will informed me if he wont give blood, the cases will be cancelled. Hiro Pereira made aware.
--- NOTE | 2025-04-08 07:26 | PC.NURSE ---
Lab returned at 0700 to try to obtain more blood for the BNP for surgery, umer refused. Dayshift and nightshift nurse informed him on the importance of the blood and surgery.
--- NOTE | 2025-04-08 08:51 | ANES.PREANE2 ---
Pre-Anesthetic Assessment Height/Weight: Height 6 ft Weight 229 lb 6.4 oz Temp Pulse Resp BP Pulse Ox O2 Del Method 98.7 F 64 18 114/71 95 Room Air 04/08/25 08:35 04/08/25 08:35 04/08/25 08:35 04/08/25 08:35 04/08/25 08:35 04/08/25 08:35 Preop Diagnosis: Arm abscess secondary to IVDU Operation Date: 04/07/25 16:40 Proposed Procedures p Incision And Drainage-Right Upper Extremity Abcess(Right) - Freddy Will MD Operation Date: 04/08/25 08:10 Proposed Procedures p Incision And Drainage- right arm(Right) - Freddy Will MD Was Beta Solo taken within 24 hours: N/A Was Clonidine taken within 24 hours: N/A Last intake: Intake Last Liquid Date 04/07/25 Last Liquid Time 23:00 Last Solid Date 04/07/25 Last Solid Time 23:00 Social No alcohol and No tobacco Exam alert and oriented x 3 Airway Submandibular: within normal limits Cervical ROM: within normal limits Mallampati: Class III Comments: Comments: Very poor dentition, loose front bottom tooth. Very loose, patient can wiggle it [id number] Anesthetic Plan ASA status: 3E Anesthesia: MAC Other: Patient initially came in on 04/06/2025 with upper extremity abscess from IVDU. Patient was found to have profound hypokalemia at admission, K+ 2.0 as well as hypocalcemia, Ca 4.5 Patient has been refusing potassium supplementation as well as blood draws Methamphetamine positive upon admission, patient states that he used 2 weeks ago but then questioned why he was still positive he states well maybe it was sooner than that Patient denies all medical problems and does not take any home meds Repeat labs yesterday showing NA 132, K+ 5.2, Ca 8.2 While I believe initial BMP at admission was errored, informed patient that it is safest to obtain repeat labs to check electrolytes. He is currently refusing. Discussed with surgeon and hospitalist, patient needs I&D or they believe this will get worse. Extensive conversation had with patient informing him that he would be at increased risk of anesthesia if he had hypokalemia or hyperkalemia. He says that he does not care and there are risks with anything We will proceed at this time with MAC anesthesia Medications/Allergies Home Medications ?Medication ?Instructions ?Recorded ?Confirmed ?Last Taken ?Type No Known Home Medications 04/06/25 04/06/25 Unknown History Allergies Allergy/AdvReac Type Severity Reaction Status Date / Time No Known Allergies Allergy Unverified 03/03/22 08:54 Current Medications Generic Name Dose Route Start Last Admin Trade Name Freq PRN Reason Stop Dose Admin Acetaminophen 650 mg 04/06/25 21:49 04/07/25 00:57 Acetaminophen 325 Mg Tablet PO 650 mg Q6H PRN Administration Mild/Mod Pain Or Temp >/= 101 Cefepime HCl 2,000 mg 04/06/25 22:15 04/08/25 05:25 Cefepime 2,000 Mg Sdv IVP 2,000 mg Q8H ROBBI Administration Protocol Docusate Sodium 100 mg 04/07/25 09:00 04/07/25 17:28 Docusate Sodium 100 Mg Capsule PO Not Given BID ROBBI Vancomycin HCl 1,250 mg in 250 mls @ 166.667 mls/hr 04/07/25 07:00 04/08/25 08:01 Vancocin IV 167 mls/hr Q8H ROBBI Administration Ketorolac Tromethamine 30 mg 04/06/25 22:00 04/08/25 08:02 Ketorolac 30 Mg/Ml Inj IVP 04/11/25 21:59 30 mg Q6H ROBBI Administration Morphine Sulfate 4 mg 04/06/25 21:49 04/07/25 17:27 Morphine 4 Mg/Ml Sdv 1 Ml IVP 4 mg Q4H PRN Administration SEVERE PAIN Pantoprazole Sodium 40 mg 04/07/25 09:00 04/07/25 08:[address] 40 Mg Tablet PO 40 mg DAILY ROBBI Administration [facility] Anesthesia Medical History (Updated 04/07/25 @ 01:10 by Chrissy Oseguera MD) DDD (degenerative disc disease), lumbar Obesity Tobacco abuse Essential (primary) hypertension Surgical History History of carpal tunnel surgery both Family History Other CAD (coronary artery disease) Cancer Hyperlipidemia Social History Smoking and tobacco/nicotine status: current every day tobacco/nicotine user Second hand smoke exposure: Yes Alcohol intake: never Substance/Drug Use: never Adopted: No Caregiver/support person: No Lives independently: Yes Household members: none Housing: House Marital status: service: No Current occupational status: unemployed Pets and animals: Yes Do you think of yourself as: Straight/Heterosexual Current gender identity: Male Data Anesthesia 04/07/25 16:15 04/07/25 16:15 Short CBC 04/06/25 04/06/25 04/07/25 Range/Units 15:59 17:11 16:15 WBC Cancelled 10.48 11.43 Hgb Cancelled 9.30 L 12.90 D Hct Cancelled 27.5 L 37.3 D MCV Cancelled 86.5 83.8 Plt Count Cancelled 220 288 D Neut % (Auto) Cancelled 81.5 79.3 Neut # (Auto) Cancelled 8.54 H 9.05 H BMP 04/06/25 04/06/25 04/07/25 15:59 17:11 04:04 Sodium Cancelled 140 Cancelled Potassium Cancelled 2.0 L* Cancelled Chloride Cancelled 117 H Cancelled Carbon Dioxide Cancelled 15 L Cancelled BUN Cancelled 8 Cancelled Creatinine Cancelled 0.4 L Cancelled Glucose Cancelled 72 Cancelled Calcium Cancelled 4.5 L* Cancelled 04/07/25 16:15 Sodium 132 L Potassium 5.2 H Chloride 100 Carbon Dioxide 19 L BUN 14 Creatinine 0.8 Glucose 90 Calcium 8.2 L Liver Function 04/06/25 04/06/25 04/07/25 Range/Units 15:59 17:11 04:04 Total Bilirubin Cancelled 0.6 Cancelled AST Cancelled 8 Cancelled ALT Cancelled 10 Cancelled Alkaline Phosphatase Cancelled 55 Cancelled Albumin Cancelled 1.8 L Cancelled 04/07/25 Range/Units 16:15 Total Bilirubin 1.0 AST 22 ALT 21 Alkaline Phosphatase 127 Albumin 3.2 L Urine 04/06/25 Range/Units 18:55 Urine Color [place] A (Yellow) Urine Appearance Clear (CLEAR) Urine pH 5.5 (5-7) Ur Specific [place] 1.020 (1.005-1.030) Urine Protein Trace A (Negative) Urine Glucose (UA) Negative (Normal) Urine Ketones Trace (Negative) Urine Nitrate Positive A (Negative) Urine Bilirubin 1+ H (Negative) Ur Leukocyte Esterase Negative (Negative) Urine RBC 0-2 (0-2) /hpf Urine WBC 0-5 (0-5) /hpf Coags 04/06/25 04/06/25 15:59 17:11 C-Reactive Protein Cancelled 55.2 H Microbiology 04/06/25 17:11 Blood Culture - Preliminary Blood NEGATIVE TO DATE 04/06/25 15:59 Blood Culture - Preliminary Blood NEGATIVE TO DATE
--- NOTE | 2025-04-08 08:59 | W.PM.OPSUD ---
Surgery/Procedure H&P Update DATE OF PROCEDURE: April 08, 2025 DATE H&P PERFORMED: 04/07/25 H&P UPDATE INFORMATION: I have reviewed H&P completed within last 30 days, I have examined patient prior to procedure, No changes to prior documentation and Risks and benefits of the procedure reviewed PREOP DIAGNOSIS: Arm abscess secondary to IVDU PLANNED PROCEDURE: Operation Date: 04/07/25 16:40 Proposed Procedures p Incision And Drainage-Right Upper Extremity Abcess(Right) - Freddy Will MD Operation Date: 04/08/25 08:10 Proposed Procedures p Incision And Drainage- right arm(Right) - Freddy Will MD
--- NOTE | 2025-04-08 09:20 | P.OP_ITS ---
Operative Report Date of procedure: April 08, 2025 Pre-op diagnosis: Right forearm abscess Post-op diagnosis: same Post-op findings: Right forearm abscess cavity 4 x 3 x 2 cm. Drain 30 cc of purulent fluid. Send cultures. Packed with half-inch iodoform. Wrapped with gauze and Alexsander wrap. Procedure done: Incision and drainage of right forearm abscess Implants: N/A Specimens removed/disposition: Cultures sent Pathology: N/A Surgeon: Freddy Will MD Supercalender Operator Helper: N/A Anesthesia: MAC Estimated blood loss (mL): 5 Complications: N/A Findings: Right forearm abscess cavity 4 x 3 x 2 cm. Drain 30 cc of purulent fluid. Send cultures. Packed with half-inch iodoform. Wrapped with gauze and Alexsander wrap. Condition: stable Disposition: floor Brief History: 59-year-old male admitted with right forearm abscess. Discussed risk and benefits and patient agreed to proceed with right forearm abscess incision and drainage. Patient understands he will need to take care of the wound for weeks. Patient understands he will be referred to wound care. Patient understands he needs to do daily packing changes. Procedure: Consent obtained in the preop area. Patient brought to the OR. Timeout was carried out. The right forearm was prepped and draped in the usual sterile fashion. A cruciate incision was done with a 10 blade over the point of maximal fullness. 30 cc of purulent fluid was evacuated. Cultures were obtained. The wound was washed out with 500 cc of normal saline. The wound was also irrigated with 500 cc of diluted peroxide. Adequate hemostasis was confirmed. The wound was packed with half-inch iodoform. Dry gauze was used to cover the wound. A Kerlix and an Alexsander wrap were used to wrap around the forearm. The patient was transferred to PACU without any complications
--- NOTE | 2025-04-08 09:28 | P.PN_ITS ---
Subjective 2 Subjective: Patient refusing repeat blood draw for potassium levels Surgery delayed due to this Vitals/I&O/Wt Last Vital Signs Temp 98.7 F 04/08/25 08:35 Pulse 64 04/08/25 08:35 Resp 18 04/08/25 08:35 BP 114/71 04/08/25 08:35 Pulse Ox 95 04/08/25 08:35 O2 Del Method Room Air 04/08/25 08:35 04/07/25 04/08/25 04/08/25 22:59 06:59 14:59 Intake Total 930 / 1180 300 / 1480 Balance 930 / 1180 300 / 1480 Weight last 48 hrs Weight 229 lb 6.4 oz Weight 220 lb Weight 220 lb Weight 230 lb Physical Exam 2 Narrative: Chest: Unlabored breathing room air. No lymphadenopathy. Heart: Regular rate and rhythm. Abdomen: Soft, nontender, nondistended. No masses or lymphadenopathy. Right forearm abscess on volar aspect about 4 cm in diameter Data 04/07/25 16:15 04/07/25 16:15 Micro: Microbiology 04/06/25 17:11 Blood Culture - Preliminary Blood NEGATIVE TO DATE 04/06/25 15:59 Blood Culture - Preliminary Blood NEGATIVE TO DATE A&P Assessment and plan 1. Abscess of skin or subcutaneous tissue: Plan: 59-year-old male who presented with a right forearm abscess. Issues with electrolyte derangements that have delayed surgical intervention. Patient has refused electrolyte replacements and today refusing a repeat blood draw since the first lab draw was hemolyzed. Eventually decided on proceeding to the OR under MAC. Abscess drained in the OR. Packed the wound. Daily packing changes. Rest of care per hospitalist. PDMP PDMP Reviewed: Not Reviewed Attestations 2 Medical Necessity Statement*: N/A Coding Level of Care Code 07816 Diagnoses Abscess of skin or subcutaneous tissue L02.91
[2025-04-08] MEDS: morphine 4 mg/mL SDV 1 mL IVP (11:12)
[2025-04-08] MEDS: oxyCODONE 5 mg IR Tab/Cap PO (12:15)
--- NOTE | 2025-04-08 12:17 | ANE.PACU2 ---
Inpatient post-anesthesia follow up: Airway intact: Yes Vital signs: Temperature 97.0 F Pulse Rate 57 Respiratory Rate 20 Blood Pressure 139/70 Pulse Oximetry 99 Oxygen Delivery Me thod [ Room Air Current Rate & Del frantz] Oxygen Delivery Me thod Room Air Oxygen Flow Rate 6 Fraction of Inspir ed Oxygen Hydration adequate: Yes Nausea and vomiting: No Pain level: 1 Mental status: Baseline
--- NOTE | 2025-04-08 13:50 | PM.DCS ---
Discharge Providers Date of Admission: 04/06/25 20:26 Date of Discharge: April 08, 2025 Attending Provider at Admission: Chrissy Oseguera MD Attending Provider at Discharge: Kojo Townsend MD Consults: Tony Will MD General Surgeon Primary Care Provider: SHAWNEE Benjamin Diagnoses at Discharge Discharge Diagnosis 1. Abscess of skin or subcutaneous tissue: Details from hospital stay: Patient was admitted and treated with cefepime plus vancomycin and switched over to Bactrim for discharge assuming that this is methicillin-resistant Staph aureus. Patient declined to stay until cultures were done or to have IV antibiotics and continued wound packing here. Patient is counseled that if wound packing is not done and wound closes on the outside then abscess will redevelop. Fevers chills continued infection and inflammation of the arm would lead to bloodstream infection and endocarditis and patient was counseled regarding this and reports understanding. We arranged outpatient wound care for dressing change. We also arranged medical transport based on Medicaid benefits. Patient was appreciative of this 2. Methamphetamine abuse: Details from hospital stay: Patient was skin popping as his veins have deteriorated over time. He is counseled that he should stop methamphetamines but if using he should inhale them as opposed to IV use. 3. Metabolic acidosis: Details from hospital stay: Resolved. Notably the labs were abnormal but hematocrit was low potassium and magnesium extremely low consistent with dilution and a bad sample. On redraw this was largely resolved consistent with lab error 4. Tobacco abuse: Details from hospital stay: Patient declined to stop smoking. He states he is interested in stopping methamphetamines however 5. Noncompliance by refusing service: Details from hospital stay: Patient refused blood draws and threatened to leave AMA multiple times. He ultimately did have blood draw in his right leg for blood sample last evening confirming safe electrolyte condition to proceed with surgery this morning. He refused confirmatory lab this morning but Dr. Nash and Suman and I spoke and elected to proceed with surgery based on risks and benefits for this patient. Patient refused to stay further in the hospital today so I sent home home antibiotics, Percocet for pain and dressing changes as well as arrange outpatient wound care. Reason for Visit Reason for Visit: R Forarm Hard to touch swollen blisters Brief History: General well-developed well-nourished female in no acute cardiopulmonary stress CV regular rate and rhythm with a 3/6 systolic ejection murmur best heard at the left sternal border and left axilla Lungs clear to auscultation bilaterally Abdomen positive bowel tones soft nontender Calves trace pretibial edema bilateral and equal Skin extremities are warm mildly damp face is not flushed Left temporal artery biopsy site no erythema glue is in place. Right temporal artery palpated not tender Hospital Course Hospital Course Patient was admitted and treated with cefepime and vancomycin. His initial lab draw was demonstrating severe anemia, hypokalemia and hypomagnesemia These were replaced but on repeat draw the rise was out of proportion to the replacement given and retrospectively the initial blood draw was a lab error. The patient went to surgery this morning and insists on discharge. See problem list for additional details. He did except counseling today and was receptive to idea of outpatient wound care and outpatient rehab for methamphetamine abuse. He declined tobacco cessation I spoke with Dr. Will and Dr. Nash this morning to facilitate surgery as patient refused his lab and his surgery was briefly canceled but then reinstated for the benefit of the patient as he was going to leave AMA and come back potentially with sepsis and/or endocarditis in need of emergent surgery and worse. Physical Exam Narrative: General well-developed well-nourished male in no acute cardiopulmonary stress CV regular rate and rhythm Right arm is in a dressing and Alexsander wrap. Mentation alert and oriented he is mildly anxious but not agitated or combative Discharge Data Studies Completed and Pending Completed Studies During Hospitalization Category Date Time Status CT forearm RT w con [id number] Routine Cat Scan 04/07/25 01:31 Completed XR forearm RT 2V [id number] Stat Exams 04/06/25 15:30 Completed US soft tissue/extremity [id number] Stat Ultrasound 04/06/25 15:30 Completed Pending at discharge Category Date Time Status Anaerobic Culture Routine Lab 04/08/25 09:11 Received Anaerobic Culture Stat Lab 04/07/25 23:39 Received BMP [Basic Metabolic Panel] Routine Lab 04/08/25 Ordered Blood Culture Stat Lab 04/06/25 17:11 Results Wound Culture and Gram Stain Routine Lab 04/08/25 09:11 Received CV. echo complete* [id number] Routine Ultrasound 04/07/25 22:10 Taken Radiology Impressions Forearm X-Ray 04/06/25 15:30 IMPRESSION: 1. Probable soft tissue edema. No bony injury. No radiopaque soft tissue foreign body. Soft Tissue Ultrasound 04/06/25 15:30 IMPRESSION: 1. Right forearm multiloculated subcutaneous fluid collection with lobulated contour, most consistent with abscess in the appropriate clinical context; post-traumatic seroma or indolent cystic lesion less likely. Percutaneous fluid sampling may be useful to establish a definitive mycobacterial or/and histologic diagnosis this regard. Consider referral to general surgery for incision and drainage. 2. Right upper extremity forearm suspected thrombosed superficial vein coursing through the aforementioned fluid collection. Forearm CT 04/07/25 01:31 IMPRESSION: 1. Multiloculated abscess along the radial aspect of the mid forearm measuring up to 4.1 x 3.1 x 7.4 cm. Likely involvement of the superficial muscular fascial compartment. Superficial intramuscular extension is not excluded. 2. Questioned phlegmonous changes in the lateral aspect of the flexor compartment of the mid forearm. 3. Thrombophlebitis of the superficial vessel traversing the abscess. Patent imaged brachial, radial, and ulnar arteries. Laboratory Results WBC 11.43 10^3/uL (3.29-11.43) 04/07/25 16:15 Corrected WBC Cancelled 04/06/25 15:59 RBC 4.45 10^6/uL (3.85-5.65) 04/07/25 16:15 Hgb 12.90 g/dL (11.27-16.99) D 04/07/25 16:15 Hct 37.3 % (37-53) D 04/07/25 16:15 MCV 83.8 fl (82-101) 04/07/25 16:15 MCH 29.0 pg (27-33) 04/07/25 16:15 MCHC 34.6 g/dL (30-55) 04/07/25 16:15 RDW 13.1 % (12.1-15.1) 04/07/25 16:15 Plt Count 288 10^3/cmm (157-399) D 04/07/25 16:15 MPV 9.4 fL (7.4-10.4) 04/07/25 16:15 Gran % Cancelled 04/06/25 15:59 Neut % (Auto) 79.3 % 04/07/25 16:15 Lymph % (Auto) 12.6 % 04/07/25 16:15 Jerauld % (Auto) 6.4 % 04/07/25 16:15 Eos % (Auto) 1.0 % 04/07/25 16:15 Baso % (Auto) 0.4 % 04/07/25 16:15 Neut # (Auto) 9.05 10^3/uL (1.8-7.7) H 04/07/25 16:15 Lymph # (Auto) 1.4 10^3/uL (0.8-4.8) 04/07/25 16:15 Jerauld # (Auto) 0.7 10^3/uL (0.2-0.9) 04/07/25 16:15 Eos # (Auto) 0.1 10^3/uL (0.0-0.8) 04/07/25 16:15 Baso # (Auto) 0.1 10^3/uL (0.0-0.1) 04/07/25 16:15 Absolute Gran (auto) Cancelled 04/06/25 15:59 Nucleated RBC % (auto) 0 % 04/07/25 16:15 Nucleated RBCs # 0.0 /100WBC 04/07/25 16:15 Sodium 132 mmol/L (136-145) L 04/07/25 16:15 Potassium 5.2 mmol/L (3.5-5.1) H 04/07/25 16:15 Chloride 100 mmol/L (98-107) 04/07/25 16:15 Carbon Dioxide 19 mmol/L (22-29) L 04/07/25 16:15 Anion Gap 18.2 (5-19) 04/07/25 16:15 BUN 14 mg/dL (6-20) 04/07/25 16:15 Creatinine 0.8 mg/dL (0.7-1.2) 04/07/25 16:15 GFR Calculation 99.3 mL/min (90-130) 04/07/25 16:15 Glucose 90 mg/dL (65-115) 04/07/25 16:15 Calculated Osmolality 274 mOsm/kg (285-295) L 04/07/25 16:15 Lactic Acid 0.8 mmol/L (0.5-2.2) 04/06/25 17:11 Calcium 8.2 mg/dL (8.5-10.5) L 04/07/25 16:15 Ionized Calcium Binh 1.1 mmol/L (1.1-1.4) 04/07/25 16:15 Phosphorus 3.5 mg/dL (2.5-4.5) 04/07/25 16:15 Magnesium 2.3 mg/dL (1.7-2.3) 04/07/25 16:15 Total Bilirubin 1.0 mg/dL (0.15-1.2) 04/07/25 16:15 AST 22 U/L (0-40) 04/07/25 16:15 ALT 21 U/L (0-41) 04/07/25 16:15 Alkaline Phosphatase 127 U/L (40-130) 04/07/25 16:15 C-Reactive Protein 55.2 mg/L (0.0-4.9) H 04/06/25 17:11 Total Protein 5.9 g/dL (6.6-8.7) L D 04/07/25 16:15 Albumin 3.2 g/dL (3.5-5.2) L 04/07/25 16:15 Globulin 2.7 g/dL (1.3-4.6) 04/07/25 16:15 Urine Color [place] (Yellow) A 04/06/25 18:55 Urine Appearance Clear (CLEAR) 04/06/25 18:55 Urine pH 5.5 (5-7) 04/06/25 18:55 Ur Specific [place] 1.020 (1.005-1.030) 04/06/25 18:55 Urine Protein Trace (Negative) A 04/06/25 18:55 Urine Glucose (UA) Negative (Normal) 04/06/25 18:55 Urine Ketones Trace (Negative) 04/06/25 18:55 Urine Blood Negative (Negative) 04/06/25 18:55 Urine Nitrate Positive (Negative) A 04/06/25 18:55 Urine Bilirubin 1+ (Negative) H 04/06/25 18:55 Urine Urobilinogen 2.0 mg/dL (Negative) H 04/06/25 18:55 Ur Leukocyte Esterase Negative (Negative) 04/06/25 18:55 Urine RBC 0-2 /hpf (0-2) 04/06/25 18:55 Urine WBC 0-5 /hpf (0-5) 04/06/25 18:55 Ur Squamous Epith Cells 0-5 /hpf (0-5) 04/06/25 18:55 Amorphous Sediment Not Reportable 04/06/25 18:55 Urine Bacteria None seen /hpf (NONE) 04/06/25 18:55 Hyaline Casts 1.21 /lpf 04/06/25 18:55 Vancomycin Trough 16.5 ug/mL (10-15) H 04/08/25 05:58 Urine Opiates Screen Negative ng/mL (Negative) 04/06/25 18:55 Ur Barbiturates Screen Negative ng/mL (Negative) 04/06/25 18:55 Ur Phencyclidine Scrn Negative ng/mL (Negative) 04/06/25 18:55 Ur Amphetamines Screen Positive ng/mL (Negative) H 04/06/25 18:55 U Benzodiazepines Scrn Negative ng/mL (Negative) 04/06/25 18:55 Urine Cocaine Screen Negative ng/mL (Negative) 04/06/25 18:55 U Marijuana (THC) Screen Negative ng/mL (Negative) 04/06/25 18:55 Vitals Last Vital Signs Temp 97.5 F L 04/08/25 11:15 Pulse 57 L 04/08/25 11:44 Resp 20 H 04/08/25 12:15 BP 147/88 04/08/25 11:15 Pulse Ox 99 04/08/25 12:15 O2 Del Method Room Air 04/08/25 11:44 O2 Flow Rate 6 04/08/25 09:25 Discharge Plan Discharge Patient Disposition: Home Condition: Stable Prescriptions: New oxycodone-acetaminophen [Endocet] 7.5-325 mg tablet 1 tab PO TID PRN (Reason: pain) Qty: 20 0RF acetaminophen 325 mg Tablet 650 mg PO Q6H PRN (Reason: Mild/Mod Pain Or Temp >/= 101) Qty: 60 0RF docusate sodium 100 mg Capsule 100 mg PO BID Qty: 60 0RF sulfamethoxazole-trimethoprim 800-160 mg Tablet 1 tab PO BID Qty: 20 0RF pantoprazole 40 mg Tablet,Delayed Release (Dr/Ec) 40 mg PO DAILY Qty: 30 0RF ibuprofen 600 mg tablet 600 mg PO TID MDD 3 a day PRN (Reason: pain) Qty: 20 0RF Rx Instructions: Take with food Discharge Order = DC NOW: Discharge Order (Routine); Ordered 04/08/25 Ordered By: Kojo Townsend Referrals: Freddy Will MD [Physician, General Surgery] - 04/21/25 8:15 am Referral Note: Mahsa Salomon FNP [Primary Care Provider, Nurse Practitioner] - 1 week Referral Note: We have notified your physician's clinic of the need for a follow-up appointment to be scheduled. If you have not heard from them within the next 2 business days, please call them directly. Discharge Diet: Low Salt Discharge Activity: Limit activity as instructed Patient Instructions: Sulfamethoxazole/Trimethoprim (By mouth), How to Stop Smoking (GEN), Acute Wound Care (DC), Methamphetamine Use Disorder (GEN), Opioid Safety, Post Anesthesia Care, Patient Portal & Kirstie Instructions Activity Restrictions/Additional Instructions: It was my recommendation that you remain in the hospital and have your wound dressing changes done by the nurses and receive additional IV antibiotics until we had wound cultures back. Compromising with you we have arranged outpatient wound care. You need to have your dressing change once a day with packing. I have written for pain medications that you can take 1 3 times a day and I would take it 1 hour before you need to have your wound dressing change. Additionally take Bactrim DS 1 twice a day for infection. We do not have the culture back with sensitivities so we are not 100% sure that this antibiotic will work. Elevate your right arm higher than heart to decrease swelling If you have fevers, the wound closes on the outside and dressing changes fail then you need to come back to the emergency department and have the wound incised and drained again. Please do not remain at home if you are having fevers and chills as the infection in your arm could progress to heart valve infection which can be permanently disabling or life-threatening. I recommend that you stop methamphetamines as it can lead to cardiomyopathy which is a dilated and weakened heart that will cause heart failure. Both methamphetamines and tobacco will decrease blood flow to your arm and prevent the antibiotics from penetrating the infection well delaying healing of your wound. Please stop methamphetamines and cigarettes and go to rehab meetings. This is your best opportunity to quit this unhealthy habit. I encourage you and I appreciate your compliance with my recommendations but even if you are not compliant and you have fevers chills and worsened arm infection I do not want you to sit at home and have it get worse. In that situation please come back to the emergency department so you can be treated as soon as possible. Your echocardiogram results are not back but you can obtain those at the time of your follow-up with physician Discharge Attestations Time Spent in Discharge Care*: greater than 30 min Time Spent in Smoking Cessation: 7 minutes on tobacco and methamphetamine cessation. Patient is agreeable to wound care and considering outpatient rehab counseling but declines smoking cessation Quality Metrics Clinical Quality Measures [ No reported AMI, CVA or VTE this stay] Coding Level of Care Code 75977 Diagnoses Abscess of skin or subcutaneous tissue L02.413 Laterality: right Site of cutaneous abscess: extremity Site of cutaneous abscess of extremity: upper extremity Methamphetamine abuse F15.10 Metabolic acidosis E87.20 Tobacco abuse Z72.0 Noncompliance by refusing service Z91.199 Time Spent (min) 45
--- NOTE | 2025-04-08 14:54 | PC.NURSE ---
This nurse gave patient scheduled IV antibiotic and toradol before removing IV. This nurse spent approximately 20 minutes discussing discharge paperwork and wound care and showing patient the supplies to use and how to pack his dressing. Patient stated he understood and provided teach back about dressing change. Patient was educated on the importance of follow up appointments and to return to the emergency department for any chills or fevers. Patient agreed to come back with worsening symptoms even though he was reluctant. Patient was educated about the importance to quit smoking and using methamphetamines. Patient stated if he had to give one up, it would be the meth. Written prescription for pain medication was discussed with patient and educated that it was placed in his discharge folder. Patient ambulated to Emergency Room exit along side this nurse to wait for his sister to pick him up.
== END 2025-04-08 14:45 | disposition home or self-care (01) | DRG 603 ==
LOC: ER 18:01 → MEDSURG 20:26
PROVIDERS: Student in an Organized Health Care Education/Training Program; Admitting Provider Internal Medicine; Emergency Provider Physician Assistant; Family Provider Nurse Practitioner Family; PCP Nurse Practitioner Family; Visit Provider Internal Medicine
PROC: 0H9DXZX Drainage of Right Lower Arm Skin, External Approach, Diagnostic (ICD-10-PCS; principal; 2025-04-08 08:00)
DX: L02.413 Cutaneous abscess of right upper limb (principal); F20.0 Paranoid schizophrenia; E87.20 Acidosis, unspecified; L03.113 Cellulitis of right upper limb; I10 Essential (primary) hypertension; F15.10 Other stimulant abuse, uncomplicated; F17.210 Nicotine dependence, cigarettes, uncomplicated; E83.42 Hypomagnesemia; E87.6 Hypokalemia; E83.51 Hypocalcemia; M51.369 Other intervertebral disc degeneration, lumbar region without mention of lumbar back pain or lower extremity pain; E66.9 Obesity, unspecified; Z91.198 Patient's noncompliance with other medical treatment and regimen for other reason; Z68.31 Body mass index [BMI] 31.0-31.9, adult; Z79.899 Other long term (current) drug therapy; Z56.0 Unemployment, unspecified
CPT/HCPCS: 36415; 73090; 73201; 76882; 80053; 80202; 80306; 81001; 82330; 83605; 83735; 84100; 85025; 86140; 87040; 87070; 87075; 87077; 87186; 87205; 93005; 93306; 96365; 96367; 96375; 99285; J0612; J0692; J1885; J2270; J2371; J2704; J3373; J3475; J3480; J7030; J9999

== ENCOUNTER → 2025-04-10 14:08 | Outpatient (BNVA) | payer MEDICARE, MEDICAID, SELFPAY | PROVIDERS: Family Provider Nurse Practitioner Family; PCP Nurse Practitioner Family; Visit Provider Student in an Organized Health Care Education/Training Program | DX: Z98.890 Other specified postprocedural states (principal) | CPT/HCPCS: 99024 ==

== ENCOUNTER → 2025-04-17 09:29 | Outpatient (BNVA) | payer MEDICARE, MEDICAID, SELFPAY | PROVIDERS: Family Provider Nurse Practitioner Family; PCP Nurse Practitioner Family; Visit Provider Thoracic Surgery (Cardiothoracic Vascular Surgery) | DX: L98.492 Non-pressure chronic ulcer of skin of other sites with fat layer exposed (principal) | CPT/HCPCS: 11042; 99203; A6446 ==

== ENCOUNTER → 2025-04-21 07:49 | Outpatient (BNVA) | payer MEDICARE, MEDICAID, SELFPAY | PROVIDERS: Family Provider Nurse Practitioner Family; PCP Nurse Practitioner Family; Visit Provider Student in an Organized Health Care Education/Training Program | DX: R03.0 Elevated blood-pressure reading, without diagnosis of hypertension (principal); L02.91 Cutaneous abscess, unspecified | CPT/HCPCS: 99213 ==

== ENCOUNTER → 2025-04-24 10:01 | Outpatient (BNVA) | payer MEDICARE, MEDICAID, SELFPAY | PROVIDERS: Family Provider Nurse Practitioner Family; PCP Nurse Practitioner Family; Visit Provider Thoracic Surgery (Cardiothoracic Vascular Surgery) | DX: I96 Gangrene, not elsewhere classified (principal); L98.491 Non-pressure chronic ulcer of skin of other sites limited to breakdown of skin | CPT/HCPCS: 97597; A6210 ==

== ENCOUNTER → 2025-05-01 10:25 | Outpatient (BNVA) | payer MEDICARE, MEDICAID, SELFPAY | PROVIDERS: Family Provider Nurse Practitioner Family; PCP Nurse Practitioner Family; Visit Provider Thoracic Surgery (Cardiothoracic Vascular Surgery) | DX: Z09 Encounter for follow-up examination after completed treatment for conditions other than malignant neoplasm (principal); Z87.2 Personal history of diseases of the skin and subcutaneous tissue | CPT/HCPCS: 99212 ==